=== PATIENT | male | born 1950 | race Caucasian/White ===

== ENCOUNTER 2021-09-16 11:47 | Inpatient (IN) ==
[~2021-09-16 11:47] MED LIST: Acetaminophen IV 1,000 MG/100 ML BAG IVPB ONE; Famotidine 20 MG/2 ML VIAL IVP ONE
[2021-09-16] MEDS ORDERED: Nitroglycerin 0.4 MG TAB.SUBL SL PRN (12:39)
[2021-09-16] MEDS ORDERED: Naloxone 0.4 MG/ML INJ IVP PRN ×2 (12:39→19:58)
[2021-09-16] MEDS ORDERED: Ondansetron 4 MG/2 ML VIAL IVP PRN ×2 (12:39→19:58)
[2021-09-16] MEDS ORDERED: Albuterol 2.5 MG/3 ML NEBULIZER IH PRN (12:39)
[2021-09-16] MEDS ORDERED: ceFAZolin 1,000 MG, Sodium Chloride IRRigation 1,000 ML IR ONE (13:40)
[2021-09-16] MEDS ORDERED: CeFAZolin Syr 2,000MG/20 ML 2,000 MG/20 ML SYRINGE IVPB ONE (13:53)
[2021-09-16] MEDS ORDERED: Heparin 1,000 UNITS/500 mL 500 ML ONE ×2 (14:20→14:37)
[2021-09-16] MEDS ORDERED: Ondansetron 4 MG/2 ML VIAL ONE ×2 (14:29→18:04)
[2021-09-16] MEDS ORDERED: *HR* Succinylcholine 200 MG/10 ML VIAL IVP ONE (14:29)
[2021-09-16] MEDS ORDERED: *HR* FentaNYL (PF) 100 MCG/2 ML VIAL ONE ×2 (14:29→18:26)
[2021-09-16] MEDS ORDERED: Sugammadex Sodium 200 MG/2 ML VIAL IV ONE (14:29)
[2021-09-16] MEDS ORDERED: *HR* Rocuronium Bromide 50 MG/5 ML VIAL ONE (14:29)
[2021-09-16] MEDS ORDERED: Lidocaine -MPF 2% 2 ML VIAL ONE (14:29)
[2021-09-16] MEDS ORDERED: *HR* Midazolam HCl 2 MG/2 ML VIAL ONE (14:30)
[2021-09-16] MEDS ORDERED: *HR* Propofol 200 MG/20 ML VIAL IVP ONE (14:30)
[2021-09-16] MEDS ORDERED: *HR* Remifentanil 2 MG VIAL IVP ONE (14:36)
[2021-09-16] MEDS ORDERED: *HR* Phenylephrine 10 MG/ML VIAL ONE (14:40)
[2021-09-16] MEDS ORDERED: niCARdipine 0 MG/0 ML MLS IVC ONE (14:52)
[2021-09-16] MEDS ORDERED: EPHEDrine 50 MG/ML VIAL ONE (15:37)
[2021-09-16] MEDS ORDERED: *HR* Heparin 5,000 UNIT/ML VIAL ONE (16:03)
[2021-09-16] MEDS: *HR* HYDROmorphone PF 0.5 MG/0.5 ML SYRINGE IVP PRN ×4 (18:09→19:00)
[2021-09-16] MEDS: *HR* Metoprolol 5 MG/5 ML VIAL IVP PRN ×2 (18:10→18:19)
[2021-09-16] MEDS ORDERED: *HR* FentaNYL (PF) 100 MCG/2 ML VIAL IVP ONE (18:28)
[2021-09-16] MEDS ORDERED: Acetaminophen 325 MG TABLET PO PRN (19:58)
[2021-09-16] MEDS ORDERED: *HR* OxyCODONE Immed Rel 5 MG TABLET PO PRN (19:58)
[2021-09-16] MEDS ORDERED: *HR* Labetalol 20 MG/4 ML SYRINGE IVP PRN (19:58)
[2021-09-16] MEDS ORDERED: 0.9 % Sodium Chloride 1,000 ML IVC SCH (19:58)
[2021-09-16] MEDS ORDERED: NON-FORMULARY MEDICATION 1 EACH EACH (Omega-3 Fatty Acids [Fish Oil] 300 MG Capsule) PO SCH (21:00)
[2021-09-16] MEDS: *HR* SitaGLIPtin 25 MG TABLET PO SCH (21:11)
[2021-09-16] MEDS: *HR* Glimepiride 4 MG TABLET PO SCH (21:11)
[2021-09-16] MEDS: Insulin LISPRO 300 UNITS/3 ML VIAL SUBQ SCH (21:12)
[2021-09-16] MEDS: Insulin DETEMIR 100 UNIT/ML X5UNITS SUBQ SCH (21:17)
[2021-09-16] MEDS: CeFAZolin 2 GM/120 ML BAG IVPB SCH (23:01)
[2021-09-16] MEDS: *HR* HYDROcodone/Acet 5/325 mg TABLET PO PRN (23:16)
[2021-09-17 05:55] LABS: Basophils % 0.1 %; Eosinophils % 0.1 %; Hematocrit 36.5 % (37.5-50.1); Hemoglobin 11.1 g/dL (12.9-16.9); Immature Granulocytes % 0.6 % (0-4); Lymphocytes # 1.5 K/mcL (0.6-4.6); Lymphocytes % 18.3 %; Mean Corpuscular HGB Conc 30.4 g/dL (31.6-35.5); Mean Corpuscular Hemoglobin 27.7 pg (28.0-33.3); Mean Platelet Volume 10.7 fL (9.4-12.4); Monocytes # 0.7 K/mcL (0.0-1.3); Monocytes % 8.9 %; Neutrophils # 5.9 K/mcL (1.6-8.9); Platelet Count 214 K/mcL (140-400); Red Blood Count 4.01 M/mcL (4.19-5.50); Red Cell Distribution Width 14.9 % (11.5-14.5); White Blood Count 8.2 K/mcL (4.3-11.1)
[2021-09-17 06:15] LABS: BUN/Creatinine Ratio 16 (6-26); Blood Urea Nitrogen 22 mg/dL (8-23); Carbon Dioxide 21 mEq/L (23-29); Chloride 105 mEq/L (98-107); Glucose 157 mg/dL (70-105); Osmolality,Calculated 287 (280-300); Potassium 4.7 mEq/L (3.5-5.1); Sodium 135 mEq/L (136-145); eGFR For African Americans > 60 (> 60); eGFR For Non-African Americans 50 (> 60)
[2021-09-17] MEDS ORDERED: OMEGA ACID ETHYL ESTERS PO SCH (09:00)
[2021-09-17] MEDS ORDERED: lisinopriL 20 MG TABLET PO SCH (09:00)
[2021-09-17] MEDS ORDERED: Aspirin Enteric Coated 81 MG Tablet PO SCH (09:00)
[2021-09-17] MEDS ORDERED: Fenofibrate 54 MG TABLET PO SCH (09:00)
[2021-09-17] MEDS ORDERED: DAPAGLIFLOZIN PROPANEDIOL 10 MG PO SCH (09:00)
[2021-09-17] MEDS ORDERED: Ergocalciferol (VIT D2) 50,000 UNIT (1.25MG) CAP PO SCH (09:00)
[2021-09-17] MEDS: *HR* Glimepiride 4 MG TABLET PO SCH (09:01)
[2021-09-17] MEDS: *HR* SitaGLIPtin 25 MG TABLET PO SCH (09:01)
[2021-09-17] MEDS: *HR* HYDROcodone/Acet 5/325 mg TABLET PO PRN (09:02)
[2021-09-17] MEDS: Insulin LISPRO 300 UNITS/3 ML VIAL SUBQ SCH ×2 (09:06→11:44)
[2021-09-17] MEDS: Insulin DETEMIR 100 UNIT/ML X5UNITS SUBQ SCH (09:09)
[2021-09-17] MEDS: CeFAZolin 2 GM/120 ML BAG IVPB SCH ×2 (09:10→14:43)
[2021-09-17] MEDS ORDERED: 0.9 % Sodium Chloride 1,000 ML IVC SCH (11:30)
[2021-09-17 11:32] VITALS: BP 150/80; TEMP 99.3; O2SAT 99
[2021-09-17 12:03] VITALS: PULSE 80
== END 2021-09-17 15:30 | disposition home or self-care (01) | DRG 39 ==
LOC: SAMDAY 11:47 → 2NNU 19:49
PROVIDERS: ADMIT Surgery Vascular Surgery; ATTEND Surgery Vascular Surgery